=== PATIENT | female | born 1970 | race Hispanic/Latino ===

== ENCOUNTER 2020-04-01 05:51 | Day surgery (SDC) | payer OTHER ==
--- NOTE | 2020-03-30 15:25 | History and Physical Report ---
History of Present Illness Date of examination: 03/30/20 Chief complaint: Cervical Mass History of present illness: Pt is a 49 year old who presents with finding of endocervical polyp vs mass on pelvic ultrasound. 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 History: fibroids, herpes Family/Genetic History: heart disease, hypertension, stroke Social history: no significant social history - Obstetrical History : 3 Para: 3 Hx # Term Pregnancies: 3 Number of Pregnancies: 0 Spontaneous Abortions: 0 Induced : 0 Number of Living Children: 3 Medications and Allergies Allergies Allergy/AdvReac Type Severity Reaction Status Date / Time meclizine Allergy Severe N&V Verified 03/26/20 09:23 Home Medications Medication Instructions Recorded Confirmed Last Taken Type Atenolol [Tenormin] 100 mg PO DAILY 03/26/20 03/26/20 Unknown History Losartan/Hydrochlorothiazide 1 tab PO DAILY 03/26/20 03/26/20 Unknown History [Losartan-Hctz 100-25 mg Tab] amLODIPine 10 mg PO DAILY 03/26/20 03/26/20 Unknown History Review of Systems All systems: negative - Physical Exam Breasts: Positive: deferred Cardiovascular: Regular rate Lungs: Positive: Clear to auscultation Abdomen: Positive: soft (obese) Extremities: Positive: normal Results All other labs normal. Assessment and Plan A: Endocervical mass Hypertension Fibroid Uterus P: Proceed with hysteroscopy, Myosure endometrial sampling, dilation and curettage and other indicated procedures
[~2020-04-01 05:51] MED LIST: LACTATED RINGERS 1,000 ML IV SCH; ceFAZolin/Water 2 GM/20 ML 2 GM/20 ML SYRINGE IV NR
[2020-04-01] MEDS ORDERED: ACETAMINOPHEN 500 MG TAB PO SCH (06:00)
[2020-04-01] MEDS ORDERED: MIDAZOLAM 2 MG/2 ML INJ IV NR (06:00)
[2020-04-01] MEDS ORDERED: LACTATED RINGERS 1,000 ML IV SCH (06:00)
[2020-04-01 06:58] LABS: Hematocrit 37.6 % (30.3-42.9); Hemoglobin 12.9 gm/dl (10.1-14.3); Mean Corpuscular HGB Conc 34 % (30-34); Mean Corpuscular Volume 81 fl (79-97); Platelet Count 236 K/mm3 (140-440); Red Blood Count 4.64 M/mm3 (3.65-5.03); Red Cell Distribution Width 13.5 % (13.2-15.2)
[2020-04-01] MEDS ORDERED: LIDOCAINE MPF (2%) 20 MG/1 ML VIAL 5 ML ONE (07:20)
[2020-04-01] MEDS ORDERED: propofoL 200 MG/20 ML VIAL IV ONE (07:20)
[2020-04-01] MEDS ORDERED: dexAMETHasone 20 MG/5 ML VIAL ONE (07:21)
[2020-04-01] MEDS ORDERED: ONDANSETRON 4 MG/2 ML INJ ONE (07:21)
[2020-04-01] MEDS ORDERED: KETOROLAC 30 MG/1 ML INJ ONE (07:21)
[2020-04-01] MEDS ORDERED: fentaNYL 100 MCG/2 ML INJ IV PRN (07:28)
[2020-04-01] MEDS ORDERED: ONDANSETRON 4 MG/2 ML INJ IV PRN (07:28)
--- NOTE | 2020-04-01 07:28 | Anesthesia Day of Surgery ---
Anesthesia Day of Surgery - Day of Surgery Patient Examined: Yes Patient H&P Reviewed: Yes Patient is NPO: Yes
--- NOTE | 2020-04-01 07:28 | Anesthesia Consultation ---
Anesthesia Consult and Med Hx Date of service: 04/01/20 - Airway Anesthetic Teeth Evaluation: Good ROM Head & Neck: Adequate Mental/Hyoid Distance: Adequate Mallampati Class: Class II Intubation Access Assessment: Probably Good - Pulmonary Exam CTA: Yes - Cardiac Exam Cardiac Exam: RRR - Pre-Operative Health Status ASA Pre-Surgery Classification: ASA2 Proposed Anesthetic Plan: General - Pulmonary Hx Smoking: No Hx Respiratory Symptoms: No - Cardiovascular System Hx Hypertension: Yes (took amlodipine, atenolol this morning) Hx Heart Attack/AMI: No - Central Nervous System CVA: No - Gastrointestinal Hx Gastroesophageal Reflux Disease: No - Endocrine Hx Renal Disease: No Hx Liver Disease: No Hx Insulin Dependent Diabetes: No Hx Non-Insulin Dependent Diabetes: No Hx Thyroid Disease: No - Other Systems Hx Obesity: Yes (BMI 36) - Additional Comments Anesthesia Medical History Comments: No hx anesthetic complications.
[2020-04-01] MEDS ORDERED: fentaNYL 100 MCG/2 ML INJ ONE (07:55)
[2020-04-01] MEDS ORDERED: SILVER NITRATE APPLICATOR 1 EA TP ONE ×2 (08:09→09:05)
[2020-04-01] MEDS ORDERED: ePHEDrine SULFATE 50 MG/1 ML INJ ONE (08:09)
[2020-04-01] MEDS ORDERED: SODIUM CHLORIDE 0.9% IRRIG SOLN 3000 ML IR ONE (08:12)
--- NOTE | 2020-04-01 08:51 | Operative Report ---
Operative Report Operative Report: Date of procedure: April 01, 2019 Preoperative diagnosis: 1) Cervical Mass 2) Abnormal Pelvic Ultrasound 3) H/o endometrial ablation 4) Obesity Postoperative diagnosis: Same Procedure:1)Hysteroscopy 2)Myosure endocervical sampling Surgeon: Gayle Wong M.D. Findings: 1) Small anteverted uterus 2) Obstruction of cervical os 3) Egress of 10-20 mL of mucin upon passage of dilator through ectocervical os 4) Edematous appearance of cervical mucosa Anesthesia: General with LMA Estimated blood loss: 25 mL Specimens: endocervical curettings, anerobic and aerobic cultures of mucin, cervical mucus to pathology Drains: None Complications: None Disposition: Stable to PACU Indications for procedure: Pt is a 49 year old who presents for surgical evaluation of finding of endocervical polyp vs mass on pelvic ultrasound. Operation in detail: After the risks, benefits, alternatives and complications of the procedure were explained to the patient, she gave informed consent for the procedure. She was subsequently taken to the operating room and placed in the dorsal supine position with her IV noted to be running well. SCDs noted to be in place and functioning. General anesthesia was then induced without difficulty. The patient was in placed in dorsal lithotomy position and prepped and draped in normal sterile fashion. A timeout was performed. An exam under anesthesia was performed yielding a small anteverted uterus. A red rubber catheter was used to drain the bladder yielding clear urine. An open sided speculum was then placed into the vagina for adequate visualization of the cervix. The anterior lip of the cervix was then grasped with a tenaculum for traction. The ectocervical os was noed to be pinpoint. Upon placement of Hernandez dilator through the cervix, there was immediate egress of 10-20 mL of mucin which was collected for culture and pathologic review. The cervix was then dilated to accommodate a #19 Hernandez dilator. At this time, a hysteroscope was introduced to visualize the endometrial cavity which revealed an edematous cervical mucosa. Bilateral ostia were not visualized due to endometrial scarring. The Myosure Lite device was used to perform endocervical sampling. All curettings were sent to pathology. All instruments were removed from the uterus atraumatically. At this time, the single-tooth tenaculum was removed from the cervix. Silver nitrate was placed on the tenaculum puncture sites for hemostasis. All instruments were removed from the vagina atraumatically and the procedure was ended. The patient was placed into the dorsal supine position and extubated without difficulty. She was subsequently taken to the PACU in stable condition. She tolerated the procedure well. All counts were correct 2.
--- NOTE | 2020-04-01 08:55 | Short Stay Summary ---
Short Stay Documentation Date of service: 04/01/20 - History H&P: dictated Social history: no significant social history - Allergies and Medications Current Medications: Allergies meclizine Allergy (Verified 03/26/20 09:23) Severe N&V Home Medications Medication Instructions Recorded Confirmed Last Taken Type Atenolol [Tenormin] 100 mg PO DAILY 03/26/20 04/01/20 04/01/20 04:30 History Losartan/Hydrochlorothiazide 1 tab PO DAILY 03/26/20 04/01/20 03/31/20 07:30 History [Losartan-Hctz 100-25 mg Tab] amLODIPine 10 mg PO DAILY 03/26/20 04/01/20 04/01/20 04:30 History Active Medications Acetaminophen (Acetaminophen 500 Mg Tab) 1,000 mg PO PREOP DONN Stop: 04/01/20 23:00 Last Admin: 04/01/20 06:40 Dose: 1,000 mg Documented by: Fentanyl (Fentanyl 100 Mcg/2 Ml Inj) 50 mcg IV Q5MIN PRN PRN Reason: Pain , Severe (7-10) Stop: 04/01/20 23:00 Cefazolin Sodium (Ancef/Sterile Water 2 Gm/20 Ml) 2 gm in 20 mls @ 80 mls/hr IV PREOP NR; Protocol Stop: 04/01/20 23:59 Lactated Ringer's (Lactated Ringers) 1,000 mls @ 100 mls/hr IV DIRECT DONN Stop: 04/01/20 23:59 Last Admin: 04/01/20 06:50 Dose: 100 mls/hr Documented by: Midazolam HCl (Midazolam 2 Mg/2 Ml Inj) 2 mg IV PREOP NR Stop: 04/01/20 23:00 Last Admin: 04/01/20 07:25 Dose: 2 mg Documented by: Ondansetron HCl (Ondansetron 4 Mg/2 Ml Inj) 4 mg IV ONCE PRN PRN Reason: Nausea And Vomiting Stop: 04/01/20 23:00 - Physical exam Breasts: deferred - Brief post op/procedure progress note Date of procedure: 04/01/20 Pre-op diagnosis: Cervical Mass, Abnormal Pelvic Ultrasound Post-op diagnosis: same Procedure: 1) Hysteroscopy 2) Myosure endocervical sampling Anesthesia: GETA (LMA ) Findings: 1) Cervical Obstruction 2) Egress of 10-20 mL of mucin upon passage of dilator through ectocervical os 3) Somewhat edematous appearance of cervical mucosa Surgeon: DREAD WONG Estimated blood loss: minimal (25 mL) Pathology: list (anaerobic and aerobic cultures of cervical mucus, cervical mucus, cervical curettings) Specimen disposition: to lab Condition: stable - Hospital course Hospital course: Pt underwent hysteroscopy with Myosure endocervical sampling which she tolerated well. She was observed in the PACU until she met discharge criteria. She will follow up in the office in [address] Wong. - Disposition Condition at discharge: Stable Disposition: - TO HOME OR SELFCARE - Discharge Diagnoses (1) Cervical mass Status: Acute (2) Hypertension Status: Acute Qualifiers: Hypertension type: essential hypertension Qualified Code(s): I10 - Essential (primary) hypertension Short Stay Discharge Plan Activity: other (Nothing in vagina, no tub baths, no intercourse x 4 wks ) Weight Bearing Status: Full Weight Bearing Diet: regular Follow up with: YANICK IQBAL JR, MD [Primary Care Provider] - 7 Days DREAD WONG MD [Staff Physician] - 14 Days (Please call to schedule postoperative appt ) Prescriptions: Ibuprofen [Motrin] 800 mg PO Q8HR PRN #30 tablet PRN Reason: Pain, Moderate (4-6) oxyCODONE /ACETAMINOPHEN [Percocet 5/325] 1 tab PO Q6HR PRN #20 tablet PRN Reason: Pain
[2020-04-01] MEDS: hydrALAZINE 20 MG/1 ML INJ IV PRN ×3 (09:32→10:12)
[2020-04-01 10:39] VITALS: BP 127/79
--- NOTE | 2020-04-01 13:57 | Post Anesthesia Evaluation ---
- Post Anesthesia Evaluation Patient Participated: Yes Airway Patent: Yes Stable Respiratory Function: Yes Nausea/Vomiting: No Temp > 96.8F: Yes Pain Manageable: Yes Adequeate Hydration: Yes Anesthesia Complications: No Other Comments: Hypertensive in PACU which returned to baseline with IV antihypertensives.
== END 2020-04-01 05:52 | disposition home or self-care (01) ==
LOC: OR 05:51
PROVIDERS: ATTEND Obstetrics & Gynecology
DX: N88.8 Other specified noninflammatory disorders of cervix uteri (principal); I10 Essential (primary) hypertension; G43.909 Migraine, unspecified, not intractable, without status migrainosus; M19.90 Unspecified osteoarthritis, unspecified site; E66.9 Obesity, unspecified; Z79.899 Other long term (current) drug therapy; Z98.891 History of uterine scar from previous surgery; Z88.8 Allergy status to other drugs, medicaments and biological substances; Z98.890 Other specified postprocedural states
CPT/HCPCS: 36415; 58558; 81025; 84132; 85027; 87075; 87116; 88112; 88305; A4217; C1782; J0360; J0690; J1100; J1885; J2250; J2405; J2704; J3010; J7120